=== PATIENT | female | born 2005 ===

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

== ENCOUNTER 2025-01-26 11:30 | Outpatient (RCR) | payer BC, SELFPAY | END 2025-01-26 16:57 | disposition home or self-care (01) | PROVIDERS: Visit Provider Orthopaedic Surgery | DX: Z48.89 Encounter for other specified surgical aftercare (principal); Z51.89 Encounter for other specified aftercare | CPT/HCPCS: 97110; 97140; 97161; 97164; 97530 ==